=== PATIENT | male | born 1950 | race Caucasian/White ===

== ENCOUNTER 2017-01-13 16:27 | Emergency (ER) | payer BC ==
[2017-01-13 16:42] VITALS: BP 146/90; PULSE 80; RESP 18; TEMP 97.9
--- NOTE | 2017-01-13 17:08 | ED ---
General Adult HPI - General Chief complaint: Extremity Injury, Lower Stated complaint: Ankle Injury Time Seen by Provider: 01/13/17 16:40 Source: patient, RN notes reviewed Mode of arrival: ambulatory Limitations: no limitations - History of Present Illness Initial comments: This is a 66-year-old male who presents emergency Department with a right fractured ankle. Patient states he rolled over it with his 4 reed 2 days ago and he went to [facility] today and they wanted him evaluated at the emergency department. Patient states there's been no bruising patient denies any pain currently. Patient states he has normal sensation of his foot and toes. Patient states been no color change. Patient denies any other injury. Patient has a splint on already. Nursing staff was able to get a dorsal pedis pulse. - Related Data Allergies Allergy/AdvReac Type Severity Reaction Status Date / Time No Known Allergies Allergy Verified 01/13/17 16:41 Review of Systems ROS Statement: Those systems with pertinent positive or pertinent negative responses have been documented in the HPI. ROS Other: All systems not noted in ROS Statement are negative. Past Medical History Past Medical History: GERD/Reflux, Hypertension History of Any Multi-Drug Resistant Organisms: None Reported Past Surgical History: No Surgical Hx Reported Past Psychological History: No Psychological Hx Reported Smoking Status: Never smoker Past Alcohol Use History: Occasional Past Drug Use History: None Reported General Exam - General Exam Comments Initial Comments: GENERAL Patient is well-developed and well-nourished. Patient is in no distress. EYES Patient's pupils are equal and round. Extraocular motion is intact SKIN Unremarkable NEURO The patient is alert and oriented 3. Patient has normal sensation of all of his toes and foot. PYSCH Patient has normal interpersonal interactions. MUSCULOSKELETAL Ankle is tender on the lateral aspect of the right distal fibula. Patient has good cap refill of his toes. Patient has good dorsal pedis pulses. Patient is no ecchymosis. Patient has no areas of his leg that are tense. There is no color change noted. Limitations: no limitations Course Vital Signs 01/13/17 16:38 Temperature 97.9 F Pulse Rate 80 Respiratory 18 Rate Blood Pressure 146/90 O2 Sat by Pulse 96 Oximetry Disposition Clinical Impression: Fractured fibula Disposition: HOME SELF-CARE Condition: Good Instructions: Ankle Fracture (ED) Referrals: Tommie Ortega DO [Primary Care Provider] - 1-2 days Time of Disposition: :08
== END 2017-01-13 17:23 | disposition home or self-care (01) ==
LOC: EC 16:27
DX: S82.401A Unspecified fracture of shaft of right fibula, initial encounter for closed fracture (principal); X50.1XXA Overexertion from prolonged static or awkward postures, initial encounter
CPT/HCPCS: 99283

== ENCOUNTER 2020-04-06 16:57 | Emergency (ER) | payer BC ==
[2020-04-06 17:02] VITALS: BP 147/100; PULSE 96; RESP 18; TEMP 98.6
[2020-04-06] MEDS ORDERED: DIPH,PERTUS(ACELL)TETVAC-LF 0.5 ML VIAL IM ONE (17:04)
[2020-04-06] MEDS ORDERED: LIDOCAINE 1%-EPI 1:100,000 20 ML VIAL SQ STA (17:11)
--- NOTE | 2020-04-06 17:13 | ED ---
General Adult HPI - General Chief complaint: Wound/Laceration Stated complaint: Chain saw accident Time Seen by Provider: 04/06/20 17:04 Source: patient Mode of arrival: wheelchair Limitations: no limitations - History of Present Illness Initial comments: Dictation was produced using [employer] dictation software. please excuse any grammatical, word or spelling errors. This patient was cared for during a federal and state declared state of emergency secondary to Covid 19 Chief Complaint: 69-year-old male presents with left knee laceration History of Present Illness: [age]-old male he still was using a chainsaw when he actually cut his knee to his left knee. Patient states that but some pressure and he washed it with peroxide. He hemodynamically time he moves it started bleeding profusely. He put a bandage and tape over it. Patient states the cut is very superficial. He initially was again accompanied to the emergency room except that his wound Bleeding. The ROS documented in this emergency department record has been reviewed and confirmed by me. Those systems with pertinent positive or negative responses have been documented in the HPI. All other systems are other negative and/or noncontributory. PHYSICAL EXAM: General Impression: Alert and oriented x3, not in acute distress HEENT: Normocephalic atraumatic, extra-ocular movements intact, pupils equal and reactive to light bilaterally, mucous membranes moist. Cardiovascular: Heart regular rate and rhythm Chest: Able to complete full sentences, no retractions, no tachypnea Abdomen: abdomen soft, non-tender, non-distended, no organomegaly Musculoskeletal: Pulses present and equal in all extremities, no peripheral edema Motor: no focal deficits noted Left knee: No crepitus over the patella, no pain with range of motion to the knee joint, one and a half centimeter superficial laceration to the anterior knee just in the center of the kneecap. There is exposed adipose tissue without any exposure of bone or muscular tissue Neurological: CN II-XII grossly intact, no focal motor or sensory deficits noted Skin: Intact with no visualized rashes Psych: Normal affect and mood ED course: 69-year-old male presents with chainsaw injury to the left knee. His laceration is minimal. Upon arrival are within acceptable limits. X-ray shows no foreign bodies. There is no occult bony injuries. Laceration was repaired at bedside using 3-0 nylon. Patient counseled on wound care. He is told to have his stitches removed in 10-14 days. - Related Data Allergies Allergy/AdvReac Type Severity Reaction Status Date / Time No Known Allergies Allergy Verified 04/06/20 17:00 Review of Systems ROS Statement: Those systems with pertinent positive or pertinent negative responses have been documented in the HPI. ROS Other: All systems not noted in ROS Statement are negative. Past Medical History Past Medical History: GERD/Reflux, Hypertension History of Any Multi-Drug Resistant Organisms: None Reported Past Surgical History: No Surgical Hx Reported Past Psychological History: No Psychological Hx Reported Smoking Status: Never smoker Past Alcohol Use History: Occasional Past Drug Use History: None Reported General Exam Limitations: no limitations Course Vital Signs 04/06/20 16:58 Temperature 98.6 F Pulse Rate 96 Respiratory 18 Rate Blood Pressure 147/100 O2 Sat by Pulse 96 Oximetry Procedures - Laceration Laceration #1 Consent Obtained: verbal consent Indication: laceration Site: other (knee) Description: linear Depth: simple, single layer Anesthetic Used: lidocaine 1%, with epi Anesthesia Technique: local infiltration Pre-repair: wound explored, irrigated extensively Type of Sutures: nylon Size of Sutures: 3-0 Technique: simple, interrupted Patient Tolerated Procedure: well Disposition Clinical Impression: Laceration Disposition: HOME SELF-CARE Condition: Good Instructions (If sedation given, give patient instructions): Care For Your Stitches (DC) Additional Instructions: Suture removal in 10-14 days Is patient prescribed a controlled substance at d/c from ED?: No Referrals: Tommie Ortega DO [Primary Care Provider] - 1-2 days Time of Disposition: 17:31
--- NOTE | 2020-04-06 17:28 | XR ---
Limited left knee history: Laceration To views of the left knee There is no radiopaque foreign body. Marginal spurring present at the patellofemoral joint. Question some suprapatellar increased density suggesting small effusion. Bone mineralization and alignment are maintained. There is joint space loss in the medial compartment with some marginal spurring suggesti ng osteoarthritis. IMPRESSION: No fracture or dislocation.
== END 2020-04-06 17:38 | disposition home or self-care (01) ==
LOC: EC 16:57
DX: S81.012A Laceration without foreign body, left knee, initial encounter (principal); Z23 Encounter for immunization; W29.3XXA Contact with powered garden and outdoor hand tools and machinery, initial encounter
CPT/HCPCS: 12001; 90471; 90715; 99283

== ENCOUNTER 2021-08-24 11:59 | Observation (INO) | payer BC ==
--- NOTE | 2021-08-24 13:02 | ED ---
General Adult HPI - General Chief complaint: Extremity Injury, Lower Stated complaint: Poss Broken Leg Time Seen by Provider: 08/24/21 12:00 Source: patient, EMS, RN notes reviewed, old records reviewed Mode of arrival: ambulatory Limitations: physical limitation - History of Present Illness Initial comments: This is a 71-year-old male who presents emergency Department complaining of left ankle pain after he slipped and fell. Patient denies any knee pain. Patient denies any hip pain. Patient denies any head or neck. Patient denies any upper extremity pain. Patient denies abdominal chest pain or back pain. Patient was unable to ambulate and EMS brought him in. - Related Data Home Medications Medication Instructions Recorded Confirmed Lisinopril-Hctz 20-25 mg 1 tab PO DAILY 08/24/21 08/24/21 [Zestoretic 20-25] Omeprazole 20 mg PO DAILY 08/24/21 08/24/21 Allergies Allergy/AdvReac Type Severity Reaction Status Date / Time No Known Allergies Allergy Verified 08/24/21 12:55 Review of Systems ROS Statement: Those systems with pertinent positive or pertinent negative responses have been documented in the HPI. ROS Other: All systems not noted in ROS Statement are negative. Past Medical History Past Medical History: GERD/Reflux, Hypertension History of Any Multi-Drug Resistant Organisms: None Reported Past Surgical History: No Surgical Hx Reported Past Psychological History: No Psychological Hx Reported Smoking Status: Never smoker Past Alcohol Use History: Occasional Past Drug Use History: None Reported - Past Family History Father Family Medical History: Vascular Disorder Additional Family Medical History / Comment(s): Father from a brain aneurysm at the age of 55 yrs. Mother Family Medical History: No Reported History Additional Family Medical History / Comment(s): Mother lived to be 98 yrs old. General Exam - General Exam Comments Initial Comments: GENERAL: Patient is well-developed and well-nourished. Patient is nontoxic and well- hydrated and is in moderate distress. ENT: Neck is soft and supple. No significant lymphadenopathy is noted. Oropharynx is clear. Moist mucous membranes. Neck has full range of motion without eliciting any pain. EYES: The sclera were anicteric and conjunctiva were pink and moist. Extraocular movements were intact and pupils were equal round and reactive to light. Eyelids were unremarkable. PULMONARY: Unlabored respirations. Good breath sounds bilaterally. No audible rales rhonchi or wheezing was noted. CARDIOVASCULAR: There is a regular rate and rhythm without any murmurs gallops or rubs. ABDOMEN: Soft and nontender with normal bowel sounds. No palpable organomegaly was noted. There is no palpable pulsatile mass. SKIN: Skin is clear with no lesions or rashes and otherwise unremarkable. NEUROLOGIC: Patient is alert and oriented x3. Cranial nerves II through XII are grossly intact. Motor and sensory are also intact. Normal speech, volume and content. Symmetrical smile. MUSCULOSKELETAL: Left ankle is extremely tender both medial and laterally there is some swelling and it appears that it is fractured because it is very it is unstable LYMPHATICS: No significant lymphadenopathy is noted PSYCHIATRIC: Normal psychiatric evaluation. Limitations: physical limitation Course Vital Signs 08/24/21 12:03 Temperature 98.5 F Pulse Rate 83 Respiratory 18 Rate Blood Pressure 150/89 O2 Sat by Pulse 100 Oximetry Procedures - Orthopedic Splinting/Casting Injury #1 Side: left Lower Extremity Injury Location: long leg Lower Extremity Immobilizer: posterior splint Medical Decision Making - Medical Decision Making X-ray shows a distal tibia proximal fibular fracture. I spoke with Dr. Vásquez and he agreed to admit the patient I ordered a CT of the tibia form. I also placed the patient in the splint. I spoke with Dr. Ortega to medically clear the patient. EKG shows sinus rhythm at 89 bpm DE interval 162 QRS is 106 QT interval 363 QTC is 410. Patient's EKG shows no ST segment elevation or depression. - Lab Data Result diagrams: 08/24/21 16:03 Disposition Clinical Impression: Tibia fracture, Fibula fracture Disposition: ADMITTED IP TO THIS [facility] Time of Disposition: 15:02
--- NOTE | 2021-08-24 14:05 | XR ---
EXAMINATION TYPE: XR ankle complete LT DATE OF EXAM: 08/24/2021 COMPARISON: NONE HISTORY: Pain FINDINGS: Three views of the ankle demonstrate displaced fracture of the distal diaphysis of the tibia. Hypertr ophic spurring of the calcaneus. Bony defect along the medial malleolus appears chronic and well chelsea icated. IMPRESSION: 1. Significantly displaced distal diaphyseal tibial fracture. 2. Remote medial malleolar avulsion fracture.
--- NOTE | 2021-08-24 14:06 | XR ---
EXAMINATION TYPE: XR foot limited LT DATE OF EXAM: 08/24/2021 COMPARISON: NONE HISTORY: Pain TECHNIQUE: 2 views submitted FINDINGS: Spurring of the calcaneus noted. Arthropathy first MTP. No acute fracture or dislocation. IMPRESSION: Calcaneal spurs.
--- NOTE | 2021-08-24 14:39 | XR ---
EXAMINATION TYPE: XR tibia fibula LT DATE OF EXAM: 08/24/2021 COMPARISON: NONE HISTORY: Pain TECHNIQUE: Two views are submitted. FINDINGS: There is a displaced fracture involving the proximal fibula and displaced distal tibial fracture with soft tissue edema. Arthropathy of the knee joint. There is exostosis along the posterior margin of t he proximal diaphysis of the tibia and along the tibial tubercle. IMPRESSION: 1. Displaced fractures proximal fibula extending to the tibial fibular articular surface and of the d istal diaphysis of the tibia.
[2021-08-24] MEDS ORDERED: SODIUM CHLORIDE 0.9% 1,000 ML IV ONE (15:04)
--- NOTE | 2021-08-24 15:59 | CT ---
EXAMINATION TYPE: CT lower leg LT wo con DATE OF EXAM: 08/24/2021 COMPARISON: X-rays from the same day. HISTORY: Tibia rule out fracture posterior malleolus CT DLP: 221.9 mGycm Automated exposure control for dose reduction was used. Unenhanced CT of the left lower extremity was performed from the knee through the ankle. Bone and soft tissue window settings are submitted. FINDINGS: Oblique fracture proximal left fibula at its neck extending into the proximal tibial diametaphyseal r egion. Displaced oblique fracture distal one third left tibial diaphysis with displacement of approxi mately 1.4 cm. Minimal comminution noted. There is also a hairline fracture involving the posterior t ibial malleolus. No significant displacement seen. Ankle mortise is intact. Remote avulsion fracture medial malleolar tip. Soft tissue swelling noted. No additional fractures id entified within the [id number]. IMPRESSION: 1. Nondisplaced fracture posterior tibial malleolus. Additional fractures as described above.
[2021-08-24 16:10] LABS: Basophils % (A) 0 %; Eosinophils # (A) 0.1 k/uL (0-0.7); Eosinophils % (A) 1 %; HCT 47.1 % (39.0-53.0); HGB 16.2 gm/dL (13.0-17.5); Lymphocytes # (A) 1.2 k/uL (1.0-4.8); Lymphocytes % (A) 12 %; MCH 29.9 pg (25.0-35.0); MCHC 34.4 g/dL (31.0-37.0); MCV 86.8 fL (80.0-100.0); Mean Platelet Volume 7.5; Monocytes # (A) 0.5 k/uL (0-1.0); Monocytes % (A) 5 %; Neutrophils # (A) 8.2 k/uL (1.3-7.7); Neutrophils % (A) 81 %; Platelet Count 206 k/uL (150-450); RBC 5.42 m/uL (4.30-5.90); RDW 13.3 % (11.5-15.5); WBC 10.1 k/uL (3.8-10.6)
[2021-08-24] MEDS ORDERED: HYDROmorphone 1 MG/ML 1 ML SYRINGE IVP PRN (16:20)
[2021-08-24] MEDS ORDERED: HYDROcodone/APAP 5-325MG 1 EACH TAB PO PRN ×4 (16:20→17:17)
[2021-08-24 16:22] LABS: ALT 48 U/L (4-49); AST 41 U/L (17-59); African American GFR (CKD) >90 (>60 ml/min/1.73 sqM); Albumin 4.2 g/dL (3.5-5.0); Alkaline Phosphatase 80 U/L (38-126); Anion Gap 9 mmol/L; Blood Urea Nitrogen 18 mg/dL (9-20); Calcium 9.5 mg/dL (8.4-10.2); Carbon Dioxide 27 mmol/L (22-30); Chloride 103 mmol/L (98-107); Glucose 109 mg/dL (74-99); Non-African American GFR(CKD) 89 (>60 ml/min/1.73 sqM); Potassium 3.6 mmol/L (3.5-5.1); Sodium 139 mmol/L (137-145); Total Bilirubin 1.3 mg/dL (0.2-1.3); Total Protein 6.9 g/dL (6.3-8.2)
[2021-08-24 16:27] LABS: INR 0.9 (<1.2)
[2021-08-24 16:28] LABS: Partial Thromboplastin Time 22.1 sec (22.0-30.0); Prothrombin Time 10.4 sec (9.0-12.0)
[2021-08-25] MEDS: PANTOPRAZOLE 40 MG TABLET PO SCH (10:00)
[2021-08-25] MEDS: LISINOPRIL-HCTZ 20-25 MG 1 EACH TAB PO SCH (10:00)
--- NOTE | 2021-08-25 10:42 | P.HPOR ---
History of Present Illness H&P Date: 08/25/21 This patient is a 71-year-old male with past medical history of hypertension that presented to [facility] emergency department yesterday on 08/24/21 with complaints of left lower leg pain following a ground-level fall. The patient states he was at the [facility] yesterday, when he slipped on ice. He experienced immediate pain in the lower leg and deformity. He was unable to bear weight or walk, therefore an ambulance was called. X-rays of the left lower leg in the emergency department revealed left tibia and fibula fractures. Patient was admitted under the care of Dr. Vásquez for surgical intervention, as well as an internal medicine consult for pre-operative medical clearance. Patient is seen and examined bedside this morning. He is complaining of isolated left lower leg pain, although the pain is minimal. He states his pain is well-controlled at this time. He has no complaints or concerns at that time. He denies upper extremity pain. He denies hip or knee pain. He denies chest pain, shortness of breath, nausea, vomiting. He denies numbness and tingling in left lower extremity. Vital signs stable. Past Medical History Past Medical History: GERD/Reflux, Hypertension Additional Past Medical History / Comment(s): Past L knee injury/patellar dislocation History of Any Multi-Drug Resistant Organisms: None Reported Past Surgical History: No Surgical Hx Reported Additional Past Surgical History / Comment(s): Colonoscopy Past Anesthesia/Blood Transfusion Reactions: No Reported Reaction Past Psychological History: No Psychological Hx Reported Smoking Status: Never smoker Past Alcohol Use History: Occasional Past Drug Use History: None Reported - Past Family History Father Family Medical History: Vascular Disorder Additional Family Medical History / Comment(s): Father from a brain aneurysm at the age of 55 yrs. Mother Family Medical History: No Reported History Additional Family Medical History / Comment(s): Mother lived to be 98 yrs old. Medications and Allergies Home Medications Medication Instructions Recorded Confirmed Type Lisinopril-Hctz 20-25 mg 1 tab PO DAILY 08/24/21 08/24/21 History [Zestoretic 20-25] Omeprazole 20 mg PO DAILY 08/24/21 08/24/21 History Allergies Allergy/AdvReac Type Severity Reaction Status Date / Time No Known Allergies Allergy Verified 08/24/21 12:55 Physical Examination On examination, the patient is lying in bed in no apparent distress. He is alert and oriented 3. His head appears normocephalic and atraumatic. His breathing appears nonlabored. On inspection of the bilateral upper extremities, there are no obvious deformities or signs of trauma. On insertion of the right lower extremity, there are no obvious deformities or signs of trauma. There is no pain with passive range of motion of the right hip. On inspection of the left lower extremity, there is a long leg splint in place. The visible portion of the toes and foot are warm and well perfused with brisk capillary refill. Patient is able to wiggle toes appropriately. There is no pain with passive range of motion of the left toes. Motor and sensory function is intact of the left lower extremity. No pain with passive range of motion of the left hip. Results Left tibia/fibula x-ray 08/24/21: Displaced distal tibia fracture, proximal fibula fracture Left lower extremity CT scan 08/24/21: Non-displaced left posterior malleolus fracture - Labs Labs: Abnormal Lab Results - Last 24 Hours (Table) 08/24/21 08/24/21 Range/Units 16:03 16:03 Neutrophils # 8.2 H (1.3-7.7) k/uL Glucose 109 H (74-99) mg/dL H & H 08/24/21 Range/Units 16:03 Hgb 16.2 (13.0-17.5) gm/dL Hct 47.1 (39.0-53.0) % Coagulation 08/24/21 Range/Units 16:03 INR 0.9 (<1.2) Result Diagrams: 08/24/21 16:03 08/24/21 16:03 Assessment and Plan Assessment: Displaced left distal tibia fracture, left posterior malleolus fracture Left proximal fibula fracture Plan: - The clinical and imaging findings were discussed with the patient. The patient was discussed in detail with Dr. Vásquez. Recommend operative fixation of the patient's left tibia fracture this afternoon, pending medical clearance and consent. We discussed surgical risks in detail. Patient gave verbal consent to go forward with surgery today. - Keep the current splint intact. Keep left lower extremity elevated for swelling control. Strict nonweightbearing left lower extremity. - Pain management as needed. - Internal medicine consulted for pre-operative medical clearance. - NPO diet.
[2021-08-25] MEDS ORDERED: IV FLUID CONTINUATION 1,000 ML IV ONE (15:22)
[2021-08-25] MEDS ORDERED: ONDANSETRON 4 MG/2 ML VIAL ONE (15:29)
--- NOTE | 2021-08-25 15:42 | P.CONS ---
History of Present Illness - Reason for Consult Consult date: 08/25/21 Medical management of hypertension, gastroesophageal reflux disease Requesting physician: Alexis Vásquez - Chief Complaint Status post fall, left tib-fib fracture - History of Present Illness This is a pleasant 71-year-old gentleman with history of gastroesophageal reflux disease, hypertension, left knee injury/patellar dislocation presented to the ER after slipping on the ice at work, falling, complaining of left lower extremity pain. Denies head or neck trauma. X-ray reported distal tibia proximal fibular fracture, CT reported nondisplaced fracture posterior tibial malleolus in addition to tib-fib fracture. Evaluated by orthopedic surgery and patient is sc heduled for surgery today. Vital signs stable. Labs unremarkable. Currently no pain at rest. Denies chest pain, palpitations or shortness of breath. Denies lightheadedness dizziness or focal deficits. Review of Systems ROS Statement: Those systems with pertinent positive or pertinent negative responses have been documented in the HPI. ROS Other: All systems not noted in ROS Statement are negative. Past Medical History Past Medical History: GERD/Reflux, Hypertension Additional Past Medical History / Comment(s): Past L knee injury/patellar dislocation History of Any Multi-Drug Resistant Organisms: None Reported Past Surgical History: No Surgical Hx Reported Additional Past Surgical History / Comment(s): Colonoscopy Past Anesthesia/Blood Transfusion Reactions: No Reported Reaction Past Psychological History: No Psychological Hx Reported Smoking Status: Never smoker Past Alcohol Use History: Occasional Past Drug Use History: None Reported - Past Family History Father Family Medical History: Vascular Disorder Additional Family Medical History / Comment(s): Father from a brain aneurysm at the age of 55 yrs. Mother Family Medical History: No Reported History Additional Family Medical History / Comment(s): Mother lived to be 98 yrs old. Medications and Allergies Home Medications Medication Instructions Recorded Confirmed Type Lisinopril-Hctz 20-25 mg 1 tab PO DAILY 08/24/21 08/24/21 History [Zestoretic 20-25] Omeprazole 20 mg PO DAILY 08/24/21 08/24/21 History Allergies Allergy/AdvReac Type Severity Reaction Status Date / Time No Known Allergies Allergy Verified 08/24/21 12:55 Physical Exam Vitals: Vital Signs Temp Pulse Pulse Resp BP BP Pulse Ox 08/25/21 07:00 98.5 F 64 133/86 96 08/25/21 00:58 99.0 F 70 16 138/83 96 08/24/21 20:15 16 08/24/21 19:53 99.1 F 87 15 114/76 96 08/24/21 17:03 99.3 F 101 H 16 164/94 94 L 08/24/21 12:03 98.5 F 83 18 150/89 100 Intake and Output 08/24/21 08/25/21 08/25/21 22:59 06:59 14:59 Output Total 400 450 Balance -400 -450 Output: Urine 400 450 Other: Voiding Method Toilet Urinal Weight 81.647 kg PHYSICAL EXAM: VITAL SIGNS: [As above] GENERAL: Sitting up in bed, no acute distress HEENT: Conjunctivae normal. eyes normal. NECK: No JVD. No thyroid enlargement. No LNs CARDIOVASCULAR: S1, S2 regular. No murmur RESPIRATION: Breath sounds diminished in the bases. No rhonchi or crackles. No bronchial breathing. ABDOMEN: Soft, nontender . No guarding. no masses palpable. No ascites, No hepatosplenomegaly.Bowel sounds heard. LEGS: Left leg long splint present, toes warm and pink, capillary refill brisk PSYCHIATRY: Alert and oriented X3, mood and affect normal. NERVOUS SYSTEM: Cranial N 2-12 grossly normal. No focal deficits. Strength and sensation grossly intact. Skin: Warm and dry, no rash Results CBC & Chem 7: 08/24/21 16:03 08/24/21 16:03 Labs: Abnormal Lab Results - Last 24 Hours (Table) 08/24/21 08/24/21 Range/Units 16:03 16:03 Neutrophils # 8.2 H (1.3-7.7) k/uL Glucose 109 H (74-99) mg/dL Assessment and Plan Assessment: Displaced left distal tibia fracture, proximal fibula fracture and posterior malleolus fracture, surgery pending Gastroesophageal reflux disease Hypertension Plan: Continue on current medication regime ,monitoring and symptomatic treatment. Medically cleared for orthopedic surgery. Home meds have been reviewed and resumed accordingly. PPI for GI prophylaxis Ordered. Pain management/ Anticoagulation as per primary-orthopedic surgery. Thank you Dr. Vásquez for the consult. The impression and plan of care has been dictated as directed. : I performed a history and examination of this patient, discussed the same with the dictator. I agree with the dictator's note ,documented as a scribe. Any additional findings or plans will be noted.
[2021-08-25] MEDS ORDERED: HYDROmorphone (PF) 1 MG/ML ONE (15:46)
[2021-08-25] MEDS ORDERED: MIDAZOLAM 2 MG/2 ML VIAL ONE (15:46)
[2021-08-25] MEDS ORDERED: PROPOFOL 10 MG/ML 20 ML VIAL IV ONE (15:46)
[2021-08-25] MEDS ORDERED: ROCURONIUM 10 MG/ML (5 ML VIAL) IV ONE (15:46)
[2021-08-25] MEDS ORDERED: LIDOCAINE 1% INJ 10MG/ML (20 ML MDV) ONE (15:46)
[2021-08-25] MEDS ORDERED: NEOSTIGMINE 1 MG/ML 10 ML VIAL ONE (15:46)
[2021-08-25] MEDS ORDERED: GLYCOPYRROLATE 0.2 MG/ML 2 ML VIAL ONE (15:46)
[2021-08-25] MEDS ORDERED: PHENYLEPHRINE-0.9% NACL SYG 1,000 MCG/10 ML SYRINGE ONE (15:46)
[2021-08-25] MEDS ORDERED: fentaNYL (PF) 50 MCG/ML 2 ML AMP ONE (15:46)
[2021-08-25] MEDS ORDERED: SUCCINYLCHOLINE CHLORIDE 100 MG/5 ML SYR IV ONE (15:46)
[2021-08-25] MEDS ORDERED: DEXAMETHASONE SOD PHOSPHATE 4 MG/ML 1 ML VIAL IVP ONE (15:48)
[2021-08-25] MEDS: ONDANSETRON 4 MG/2 ML VIAL IVP ONE ×2 (15:48→19:53)
[2021-08-25] MEDS ORDERED: LACTATED RINGERS 1,000 ML IV ONE ×2 (16:22→17:45)
--- NOTE | 2021-08-25 18:34 | XR ---
EXAMINATION TYPE: XR tibia fibula LT DATE OF EXAM: 08/25/2021 6:29 PM INDICATION: Patient age:Male; 71 years old; Reason for study: LT TIBIA IM NAILING; Intraoperative fluoroscopic services were provided for internal fixation of a left tibia. Total fluor oscopy time is 5 minutes 11 seconds with a total of 16 submitted images to PACS. Please see the opera tive note for further details.
[2021-08-25] MEDS ORDERED: HYDROmorphone 1 MG/ML 1 ML SYRINGE IVP PRN ×2 (19:10)
[2021-08-25] MEDS ORDERED: hydrOXYzine pamoate 25 MG CAP PO PRN (19:10)
[2021-08-25] MEDS ORDERED: HYDROmorphone 0.2 MG/1 ML SYRINGE IVP PRN (19:10)
[2021-08-25] MEDS ORDERED: ONDANSETRON 4 MG/2 ML VIAL IVP PRN (19:10)
[2021-08-25] MEDS ORDERED: NALOXONE 0.4 MG/ML 1 ML VIAL IV PRN (19:10)
--- NOTE | 2021-08-25 19:20 | P.OP ---
Date of Procedure: 08/25/21 Preoperative Diagnosis: 1. Left distal third spiral tibia fracture 2. Left proximal third fibula fracture 3. Left ankle posterior malleolus fracture Postoperative Diagnosis: Same Procedure(s) Performed: 1. Operative fixation of left distal third tibia fracture with intramedullary nail 2. Open reduction and internal fixation of left ankle posterior malleolus fracture Anesthesia: TERE Surgeon: Alexis Vásquez Raw Juice Weigher #1: Yoli Bustillo Estimated Blood Loss (ml): 100 IV fluids (ml): 1,200 Pathology: none sent Condition: stable Disposition: PACU Indications for Procedure: The patient is very pleasant previously healthy 71-year-old male who slipped on the ice yesterday and sustained a closed distal third tibia fracture. He was brought to the emergency department and admitted under my care. X-rays showed a displaced distal third spiral tibia fracture, a proximal fibula fracture and a computed tomography scan showed a nondisplaced posterior malleolus fracture. The patient was cleared for surgery by internal medicine. I met with the patient as well as preoperatively to discuss treatment options. I recommended a reamed intramedullary nail for his tibia fracture, prophylactic fixation of the posterior malleolus fracture to prevent displacement with the nail being fully seated, and nonoperative treatment of the proximal fibula fracture. We discussed the potential risks and complications of surgery including but certainly not limited to risk of anesthesia, superficial infection, deep infection, nonunion, malunion, malreduction, malrotation, symptomatically hardware, anterior knee pain, patellofemoral arthritis, damage to local blood vessels or nerves, DVT, PE, need for further surgery, compartment syndrome, and inability to regain preinjury level of function, satisfaction with his surgical outcome, and possibly loss of life or limb. The patient and his voiced their understanding of these potential complications and also acknowledged the potential for other less common complications. They provided their verbal and written consent to go forward with surgery. Description of Procedure: The patient was identified in preoperative holding and the correct left leg was marked with my initials. I reviewed the consent form with the patient and his . All their questions were answered. The patient was then brought back to the operating room by anesthesia. He was positioned on the OR table where general anesthetic and preoperative antibiotics were given. A tourniquet was applied the proximal aspect of the left leg but was not inflated. All bony prominences on the contralateral leg and arms were well-padded. A ramp was placed on the left leg to facilitate imaging. A nonsterile 10:15 drape was applied. The left leg was then prepped and draped in the standard sterile fashion. Prior to starting surgery timeout was performed identifying the correct patient, operative extremity, and procedure. I began by percutaneously clamping and placing a cannulated 4.0 screw across the posterior malleolus fracture fragment. Stab incisions were made anterior and posterior to the distal tibia and an 8 inch spindle clamp was used to hold the posterior malleolus reduced. A guidewire was placed, verified with fluoroscopy, measured and a partially threaded 4.0 mm screw was placed across the fracture. I then turned my attention to the distal tibia fracture. Stab incisions were made medially and laterally. Longitudinal traction was applied and the 8 inch Reilly reduction clamp was used to mora in and reduce the distal tibia fracture. The reduction was verified with orthogonal views. A longitudinal incision was then made just proximal to the patella. Skin incision was made with a scalpel dissection was carried down carefully through the subcutaneous tissue. The quadriceps tendon was then incised sharply in line with the skin incision. Upon opening the knee joint there was a 3 cm x 1 cm loose osteochondral fragment within the joint which was removed. The sleeve was then placed through the patellofemoral joint and a guidepin was placed. A true AP view was taken with the lateral tibia bisecting the fibular head and the guide pin was centered over the medial aspect of the lateral tibial spine. A true lateral was taken and the guidepin was placed just off the anterior shoulder of the tibia. The soft tissue protection sleeve was secured to the tibia and opening reamer was placed. A ball-tipped guidewire was then placed across the fracture and seated down to the physeal scar. The nail was then measured and sequentially reamed until chatter was generated. The 12 mm reamer generated chatter by reaming in half millimeter increments up to 13.5 mm reamer. A 340 x 12 mm nail was dispensed. He was passed over the guidewire and fully seated. 2 interlocking screws were placed through the targeting arm proximally and 2 interlocking screws were placed distally using the freehand technique. The insertion handle was removed and final fluoroscopic images were taken showing the fracture anatomically reduced, the nail was countersunk proximally, and the ankle was reduced distally. All wounds were thoroughly irrigated and closed in layers. Sterile dressings were applied followed by well-padded bulky Perdue splint with the ankle in neutral. The patient was then awoken from his anesthetic, transferred from the OR table to [facility], and brought to recovery having tolerated the procedure well. Yoli Bustillo PA-C was required as a skilled litigation assistant due to the complexity of the surgery. Plan: The patient is to be nonweightbearing on his left leg. He'll receive 2 doses of postoperative antibiotics. DVT prophylaxis with aspirin 81 mg twice a day. Anticipate discharge home tomorrow. He'll follow-up in the office in 2 weeks for splint removal and x-rays of the left tibia and fibula out of the splint.
[2021-08-25] MEDS ORDERED: HYDROmorphone 1 MG/ML 1 ML SYRINGE IVP ONE (19:52)
[2021-08-25] MEDS: ASPIRIN 81 MG PO SCH (20:33)
[2021-08-25] MEDS ORDERED: SENNOSIDES-DOCUSATE SODIUM 1 EACH TAB PO SCH (21:00)
[2021-08-26] MEDS: ASPIRIN 81 MG PO SCH (08:11)
[2021-08-26] MEDS: PANTOPRAZOLE 40 MG TABLET PO SCH (08:12)
[2021-08-26] MEDS: LISINOPRIL-HCTZ 20-25 MG 1 EACH TAB PO SCH (08:12)
[2021-08-26 08:20] VITALS: BP 131/78; PULSE 71; RESP 18; TEMP 98.6
--- NOTE | 2021-08-26 08:27 | FL ---
Fluoroscopy HISTORY: Fracture 311 seconds fluoroscopy time supplied to the referring clinician. 16 intraoperative C-arm images doc ument the procedure. See dictated report from orthopedic surgery.
[2021-08-26 10:12] LABS: Basophils # (A) 0.02 X 10*3/uL (0.00-0.10); Basophils % (A) 0.2 %; Eosinophils # (A) 0 X 10*3/uL (0.04-0.35); Eosinophils % (A) 0 %; HCT 39.8 % (39.6-50.0); HGB 13.2 g/dL (13.0-17.0); Immature Grans, Automated 0.3 %; Lymphocytes # (A) 0.92 X 10*3/uL (0.90-5.00); Lymphocytes % (A) 9.8 %; MCH 28.9 pg (27.0-32.0); MCHC 33.2 g/dL (32.0-37.0); MCV 87.3 fL (80.0-97.0); Mean Platelet Volume 10.4 fL (9.5-12.2); Monocytes # (A) 1.02 X 10*3/uL (0.20-1.00); Monocytes % (A) 10.9 %; NRBC Per 100 WBC 0 /100 WBCS (0.0-0.0); Neutrophils # (A) 7.36 X 10*3/uL (1.80-7.70); Neutrophils % (A) 78.8 %; Platelet Count 191 X 10*3/uL (140-440); RBC 4.56 X 10*6/uL (4.40-5.60); RDW 12.8 % (11.5-14.5); WBC 9.35 X 10*3/uL (4.50-10.00)
--- NOTE | 2021-08-26 12:13 | P.DS ---
Providers Date of admission: 08/24/21 15:06 Expected date of discharge: 08/26/21 Attending physician: Alexis Vásquez Consults: 08/24/21 15:04 Consult Physician Urgent Consulting Provider: Tommie Ortega Reason/Comments: Medical clearance for surgery Do you want consulting provider notified?: Yes Primary care physician: Tommie Ortega [facility] Course: This is a 71-year-old male who is admitted to [facility] on 08/24/21 after a ground-level fall and sustaining injury to the left lower extremity. X-rays and CT scan in the emergency department revealed a displaced left distal third tibia fracture, proximal third fibula fracture, and posterior malleolus fracture. He is admitted to our service for surgical intervention and care. Patient was taken to surgery for operative fixation of distal third tibia fracture with intramedullary nail and ORIF of the left ankle posterior malleolus fracture on 08/25/[address] Vásquez. The procedure was performed without complication or sequelae. The patient is doing fairly well postoperatively. Vital signs and labs are stable on postoperative day #1. Patient was examined bedside today. He states he is experiencing minimal pain in the left lower extremity. His splint is comfortable. He has been cleared by physical therapy to return home today. He is remaining nonweightbearing on the left lower extremity. He tolerated his breakfast well. Patient denies chest pain, shortness of breath, nausea, vomiting, fevers, chills. He denies numbness or tingling to left lower extremity. On examination, the patient is sitting up in bed in no apparent distress. He is alert and oriented 3. On inspection of the left lower extremity, there is a clean, dry, intact bulky Perdue splint in place. The visible portion of the toes are warm and well perfused with brisk capillary refill distally. Patient is able to wiggle toes appropriately. There is no pain with passive range of motion of the toes. There is an OpSite dressing at the proximal knee, which is clean, dry, intact. Patient is discharged home in good condition, pending medical clearance today. Patient will follow-up with Dr. Vásquez in the office in 2 weeks. Please see med rec for accurate list of discharge medication. Plan - Discharge Summary Discharge Rx Participant: No New Discharge Prescriptions: New Aspirin 81 mg PO BID 30 Days #60 tab HYDROcodone/APAP 5-325MG [[place] 5-325] 1 tab PO Q6HR PRN 7 Days #20 tab PRN Reason: Pain Docusate [Colace] 100 mg PO BID #60 capsule No Action Lisinopril-Hctz 20-25 mg [Zestoretic 20-25] 1 tab PO DAILY Omeprazole 20 mg PO DAILY Discharge Medication List Lisinopril-Hctz 20-25 mg [Zestoretic 20-25] 1 tab PO DAILY 08/24/21 [History] Omeprazole 20 mg PO DAILY 08/24/21 [History] Aspirin 81 mg PO BID 30 Days #60 tab 08/26/21 [Rx] Docusate [Colace] 100 mg PO BID #60 capsule 08/26/21 [Rx] HYDROcodone/APAP 5-325MG [[place] 5-325] 1 tab PO Q6HR PRN 7 Days #20 tab 08/26/21 [Rx] Follow up Appointment(s)/Referral(s): Tommie Ortega DO [Primary Care Provider] - 1-2 days Alexis Vásquez MD [Medical Doctor] - 2 Weeks Patient Instructions/Handouts: Intramedullary Nailing (DC) Activity/Diet/Wound Care/Special Instructions: Strict non-weight bearing operative leg. Use crutches, walker for ambulation. Keep splint clean, dry, intact. Keep left lower extremity elevated for swelling and pain control. Take pain medications as needed. Aspirin 81mg BID for DVT prophylaxis. Follow-up in the office in two weeks with Dr. Vásquez. Call the office with any questions or concerns, Discharge Disposition: HOME SELF-CARE
--- NOTE | 2021-08-26 16:04 | P.PN ---
Subjective Progress Note Date: 08/26/21 This is a pleasant 71-year-old gentleman with history of gastroesophageal reflux disease, hypertension, left knee injury/patellar dislocation presented to the ER after slipping on the ice at work, falling, complaining of left lower extremity pain. Denies head or neck trauma. X-ray reported distal tibia proximal fibular fracture, CT reported nondisplaced fracture posterior tibial malleolus in addition to tib-fib fracture. Evaluated by orthopedic surgery and patient is scheduled for surgery today. Vital signs stable. Labs unremarkable. Currently no pain at rest. Denies chest pain, palpitations or shortness of breath. Denies lightheadedness dizziness or focal deficits. 08/26/2021 status post operative fixation of left distal third tibia fracture with intramedullary nail and Open reduction and internal fixation of left ankle posterior malleolus fracture, postop day #1, tolerated procedure well. significant clinical improvement. Pain controlled. Patient expecting to be discharged home later today per orthopedic surgery. Passing flatus. Denies nausea vomiting or diarrhea. Denies chest pain, palpitations or shortness of breath. Denies lightheadedness, dizziness or focal deficits. Reinforced patient is to be nonweightbearing on his left leg as per orthopedic surgery. Objective - Vital Signs Vital signs: Vital Signs Temp 98.6 F 08/26/21 07:00 Pulse 71 08/26/21 07:00 Resp 18 08/26/21 07:00 BP 131/78 08/26/21 07:00 Pulse Ox 96 08/26/21 07:00 Intake & Output 08/25/21 08/26/21 08/26/21 18:59 06:59 18:59 Intake Total 2049 100 50 Output Total 300 850 800 Balance 1750 -750 -750 Weight 81.647 kg Intake: IV 2049 100 Intake, IV Titration 50 Amount ceFAZolin 2 gm In Sodium 50 Chloride 0.9% 50 ml @ 100 mls/hr IVPB Q8HR [facility] Rx# :[id number] Output: Urine 200 850 800 Estimated Blood Loss 100 Other: # Voids 2 # Bowel Movements 0 - Exam VITAL SIGNS: [As above] GENERAL: Sitting up in bed, no acute distress HEENT: Conjunctivae normal. eyes normal. NECK: No JVD. No thyroid enlargement. No LNs CARDIOVASCULAR: S1, S2 regular. No murmur RESPIRATION: Breath sounds diminished in the bases. No rhonchi or crackles. No bronchial breathing. ABDOMEN: Soft, nontender . No guarding. no masses palpable. No ascites, No hepatosplenomegaly.Bowel sounds heard. LEGS: Left leg splint present, toes warm and pink, capillary refill brisk. Left knee dressing with minimal shadowing, mild edema PSYCHIATRY: Alert and oriented X3, mood and affect normal. NERVOUS SYSTEM: Cranial N 2-12 grossly normal. No focal deficits. Strength and sensation grossly intact. Skin: Warm and dry, no rash - Labs CBC & Chem 7: 08/26/21 03:58 08/24/21 16:03 Labs: Abnormal Lab Results - Last 24 Hours (Table) 08/26/21 Range/Units 03:58 Monocytes # 1.02 H (0.20-1.00) X 10*3/uL Eosinophils # 0 L (0.04-0.35) X 10*3/uL Assessment and Plan Assessment: Displaced left distal tibia fracture, proximal fibula fracture and posterior malleolus fracture, status post Operative fixation of left distal third tibia fracture with intramedullary nail and Open reduction and internal fixation of left ankle posterior malleolus fracture Gastroesophageal reflux disease Hypertension Plan: Continue on current medication regime ,monitoring and symptomatic treatment. Discharge planning in progress for today as per orthopedic surgery. Pain management/ Anticoagulation as per primary-orthopedic surgery. Continue with incentive spirometer at home every hour 10 as advised.Follow-up with PCP in one week. The impression and plan of care has been dictated as directed. : I performed a history and examination of this patient, discussed the same with the dictator. I agree with the dictator's note ,documented as a scribe. Any additional findings or plans will be noted.
== END 2021-08-26 16:35 | disposition home or self-care (01) ==
LOC: EC 11:59 → 6NMEDSUR 15:06 → 4SSUR 15:21
PROVIDERS: ADMIT Orthopaedic Surgery; ATTEND Orthopaedic Surgery
DX: S82.242A Displaced spiral fracture of shaft of left tibia, initial encounter for closed fracture (principal); S82.402A Unspecified fracture of shaft of left fibula, initial encounter for closed fracture; S82.892A Other fracture of left lower leg, initial encounter for closed fracture; I10 Essential (primary) hypertension; K21.9 Gastro-esophageal reflux disease without esophagitis; Z20.822 Contact with and (suspected) exposure to COVID-19; W00.0XXA Fall on same level due to ice and snow, initial encounter; Y99.0 Civilian activity done for income or pay; Z79.899 Other long term (current) drug therapy; Z82.49 Family history of ischemic heart disease and other diseases of the circulatory system
CPT/HCPCS: 27769; 27745; 29505; 99285; 93005; 97161; 97166; 80053; 85025 ×2; 85610; 85730; 82306; 87635; 73590 ×2; 73610; 73620; 73700; G0378 ×3; C1713; J2250; J1100; J2710; J0690 ×2; J2405; J2001; J3010; J1170; J2370; J0330; J2704

== ENCOUNTER 2024-04-08 19:43 | Emergency (ER) | payer BC ==
[2024-04-08 19:53] VITALS: RESP 18
--- NOTE | 2024-04-08 20:45 | ED ---
Skin/Abscess/FB HPI <Javier Ramey - Last Filed: 04/08/24 23:59> - General Source: patient, RN notes reviewed Mode of arrival: ambulatory Limitations: no limitations <Renetta Crespo - Last Filed: 04/09/24 04:17> - General Chief complaint: Skin/Abscess/Foreign Body Stated complaint: metal shard in arm and possibly in neck Time Seen by Provider: 04/08/24 20:40 - History of Present Illness Initial comments: 73-year-old male presenting to the ER with chief complaint of possible foreign body in left forearm and left neck. States about 1 hour ago he was using a metal device that he believes a shard of metal flew back and lodged itself in his left forearm and left neck. States his left forearm immediately began to bleed, lasted about 15 minutes, patient states he held pressure during this time, and bleeding resolved. He has swelling in the area and foreign body sensation. Denies swelling or foreign body sensation in left neck, however reports there is a small puncture wound. Denies blood thinners. (Renetta Crespo) - Related Data Home Medications Medication Instructions Recorded Confirmed Lisinopril-Hctz 20-25 mg 1 tab PO DAILY 08/24/21 08/24/21 [Zestoretic 20-25] Omeprazole 20 mg PO DAILY 08/24/21 08/24/21 Previous Rx's Medication Instructions Recorded Aspirin 81 mg PO BID 30 Days #60 tab 08/26/21 Docusate [Colace] 100 mg PO BID #60 capsule 08/26/21 HYDROcodone/APAP 5-325MG [[place] 1 tab PO Q6HR PRN 7 Days #20 tab 08/26/21 5-325] Cephalexin [Keflex] 500 mg PO Q12HR 7 Days #14 cap 04/08/24 Allergies Allergy/AdvReac Type Severity Reaction Status Date / Time No Known Allergies Allergy Verified 04/08/24 19:53 Review of Systems ROS Other: All systems not noted in ROS Statement are negative. <Javier Ramey - Last Filed: 04/08/24 23:59> ROS Other: All systems not noted in ROS Statement are negative. <Renetta Crespo - Last Filed: 04/09/24 04:17> ROS Statement: Those systems with pertinent positive or pertinent negative responses have been documented in the HPI. Past Medical History Past Medical History: GERD/Reflux, Hypertension Additional Past Medical History / Comment(s): Past L knee injury/patellar dislocation History of Any Multi-Drug Resistant Organisms: None Reported Past Surgical History: No Surgical Hx Reported Additional Past Surgical History / Comment(s): Colonoscopy Past Anesthesia/Blood Transfusion Reactions: No Reported Reaction Past Psychological History: No Psychological Hx Reported Smoking Status: Never smoker Past Alcohol Use History: Occasional Past Drug Use History: None Reported - Past Family History Father Family Medical History: Vascular Disorder Additional Family Medical History / Comment(s): Father from a brain aneurysm at the age of 55 yrs. Mother Family Medical History: No Reported History Additional Family Medical History / Comment(s): Mother lived to be 98 yrs old. <Renetta Crespo - Last Filed: 04/09/24 04:17> General Exam Limitations: no limitations General appearance: alert, in no apparent distress Head exam: Present: atraumatic, normocephalic, normal inspection Neck exam: Absent: normal inspection (Small puncture wound on the left neck with no surrounding erythema, edema, or tenderness), tenderness, meningismus, lymphadenopathy Left Shoulder Exam: Present: normal inspection, full ROM. Absent: tenderness, swelling Upper Arm exam: Present: normal inspection, full ROM. Absent: tenderness, swelling Elbow exam: Present: full ROM, tenderness, swelling. Absent: normal inspection (Small puncture wound just distal to ventral elbow with surrounding edema, mild erythema and tenderness, no active bleeding) Forearm Wrist exam: Present: normal inspection, full ROM. Absent: tenderness, swelling Hand Wrist exam: Present: normal inspection, full ROM. Absent: tenderness, swelling Vascular: Present: normal capillary refill, radial pulse. Absent: vascular compromise Neurological exam: Present: alert, oriented X3 Psychiatric exam: Present: normal affect, normal mood Skin exam: Present: warm, dry, intact, normal color. Absent: rash <Renetta Crespo - Last Filed: 04/09/24 04:17> Course Vital Signs 04/08/24 04/09/24 19:51 00:15 Temperature 98 F 98.3 F Pulse Rate 95 61 Respiratory 18 18 Rate Blood Pressure 141/95 152/90 O2 Sat by Pulse 97 97 Oximetry Procedures - Forgein Body Removal Soft Tissue Consent Obtained: verbal consent Site: upper extremity Anesthetic Used: lidocaine 2%, with epi Amount (mLs): 1 Foreign Body Suspected: Metal Foreign Body Removed: yes Foreign Body Removal Technique: Forceps Patient Tolerated Procedure: well <Javier Ramey - Last Filed: 04/08/24 23:59> - Forgein Body Removal Soft Tissue Additional Comments: ultrasound used for localization (Javier Ramey) Medical Decision Making <Renetta Crespo - Last Filed: 04/09/24 04:17> - Medical Decision Making Was pt. sent in by a medical professional or institution (, PA, NUMERICAL CONTROL MACHINE TOOL OPERATOR, urgent care, hospital, or senior living...) When possible be specific @ -No Did you speak to anyone other than the patient for history (EMS, parent, family, police, friend...)? What history was obtained from this source @ -No Did you review nursing and triage notes (agree or disagree)? Why? @ -I reviewed and agree with nursing and triage notes Were old charts reviewed (outside hosp., previous admission, EMS record, old EKG, old radiological studies, urgent care reports/EKG's, senior living records)? Report findings @ -No old charts were reviewed Differential Diagnosis (chest pain, altered mental status, abdominal pain women, abdominal pain men, vaginal bleeding, weakness, fever, dyspnea, syncope, headache, dizziness, GI bleed, back pain, seizure, CVA, palpatations, mental health, musculoskeletal)? @ -Differential Musculoskeletal Foreign body, muscular strain, contusion, ligament sprain, fracture, arthritis, septic arthritis, bursitis, cellulitis, muscle spasm, nerve compression, DVT, arterial occlusion, herpes zoster, electrolyte abnormality, tumor.... This is not meant to be in all inclusive list EKG interpreted by me (3pts min.). @ -None X-rays interpreted by me (1pt min.). @ -X-ray left elbow reveals radiopaque foreign body proximal radial aspect forearm, soft tissue neck reveals no acute process CT interpreted by me (1pt min.). @ -None done U/S interpreted by me (1pt. min.). @ -None done What testing was considered but not performed or refused? (CT, X-rays, U/S, labs)? Why? @ -None What meds were considered but not given or refused? Why? @ -Tetanus considered however patient reports last tetanus was 4 years ago Did you discuss the management of the patient with other professionals (professionals i.e. DrTariq, PA, NUMERICAL CONTROL MACHINE TOOL OPERATOR, lab, RT, psych nurse, social media marketing manager, vehicle calibration engineer, teacher, fundraising officer, case planner)? Give summary @ -No Was smoking cessation discussed for >3mins.? @ -No Was critical care preformed (if so, how long)? @ -No Were there social determinants of health that impacted care today? How? (Homelessness, low income, unemployed, alcoholism, drug addiction, transportation, low edu. Level, literacy, decrease access to med. care, correction, rehab)? @ -No Was there de-escalation of care discussed even if they declined (Discuss DNR or withdrawal of care, Hospice)? DNR status @ -No What co-morbidities impacted this encounter? (DM, HTN, Smoking, COPD, CAD, Cancer, CVA, ARF, Chemo, Hep., AIDS, mental health diagnosis, sleep apnea, morbid obesity)? @ -None Was patient admitted / discharged? Hospital course, mention meds given and route, prescriptions, significant lab abnormalities, going to OR and other pertinent info. @ -Patient was discharged. This is a 73-year-old male presenting with foreign body to left forearm prior to arrival. Believes he has a metal shard in his left forearm. Neurovascularly intact. X-ray left elbow reveals radiopaque foreign body proximal radial aspect of forearm. Soft tissue neck x-ray reveals no acute process. Left forearm foreign body was successfully removed by Dr. Ramey. Prescribed Keflex. Patient discharged in stable condition. Case was discussed with my ED attending Dr. Ramey. Undiagnosed new problem with uncertain prognosis? @ -No Drug Therapy requiring intensive monitoring for toxicity (Heparin, Nitro, Insulin, Cardizem)? @ -No Were any procedures done? @ -No Diagnosis/symptom? @ -Foreign body left forearm Acute, or Chronic, or Acute on Chronic? @ -Acute Uncomplicated (without systemic symptoms) or Complicated (systemic symptoms)? @ -Foreign body left forearm Side effects of treatment? @ -No Exacerbation, Progression, or Severe Exacerbation? @ -No Poses a threat to life or bodily function? How? (Chest pain, [place], [place], pneumonia, PE, COPD, DKA, ARF, appy, cholecystitis, CVA, Diverticulitis, Homicidal, Suicidal, threat to staff... and all critical care pts) @ -No (Renetta Crespo) Disposition <Javier Ramey - Last Filed: 04/08/24 23:59> Is patient prescribed a controlled substance at d/c from ED?: No Time of Disposition: 23:55 <Renetta Crespo - Last Filed: 04/09/24 04:17> Clinical Impression: Foreign body in left forearm Disposition: HOME SELF-CARE Condition: Stable Instructions (If sedation given, give patient instructions): Soft Tissue Foreign Body (ED) Additional Instructions: Take Keflex as prescribed. Please return to the Emergency Department if symptoms worsen or any other concerns. Prescriptions: Cephalexin [Keflex] 500 mg PO Q12HR 7 Days #14 cap Referrals: Tommie Ortega DO [Primary Care Provider] - 1-2 days
--- NOTE | 2024-04-08 22:23 | XR ---
EXAMINATION TYPE: XR elbow complete LT DATE OF EXAM: 04/08/2024 COMPARISON: None HISTORY: Foreign body TECHNIQUE: 2 view left elbow FINDINGS: There is a radiopaque foreign body within the proximal forearm anterior radial portion soft tissue swelling is present. Osseous structures appear intact. Joint space appears preserved. No elevation of the anterior or post erior fat pad is evident. IMPRESSION: 1. Radiopaque foreign body proximal radial aspect forearm with soft tissue swelling [facility], Workstation: [email or web address], 04/08/2024 10:21 PM
--- NOTE | 2024-04-08 22:49 | XR ---
EXAMINATION TYPE: XR soft tissue neck DATE OF EXAM: 04/08/2024 COMPARISON: None HISTORY: Foreign body in neck, Abrasion left-sided neck TECHNIQUE: 2 view soft tissue neck FINDINGS: No radiopaque foreign bodies are noted within the within the visualized soft tissues. Epiglottis and prevertebral space appears normal. Degenerative changes are within the cervical spine. IMPRESSION: 1. No radiopaque foreign bodies within soft tissues identified. [facility], Workstation: [facility], 04/08/2024 10:47 PM
[2024-04-09 00:19] VITALS: BP 152/90; PULSE 61; TEMP 98.3
== END 2024-04-09 00:19 | disposition home or self-care (01) ==
LOC: EC 19:43
CPT/HCPCS: 70360; 99283